=== PATIENT | female | born 1945 | race Caucasian/White ===

== ENCOUNTER 2025-02-18 15:08 | Emergency (ER) | payer MEDICARE, SELFPAY ==
--- NOTE | 2025-02-18 15:09 | W.ED.GENADLT ---
HPI - General Adult General: Chief complaint: Extremity Injury, Upper Stated complaint: left wrist pain s/p fall Time Seen by Provider: 02/18/25 15:09 Source: patient and EMS Mode of arrival: EMS Limitations: no limitations History of Present Illness: 79-year-old female who states that she had slipped and fell today at her home. She states she landed on her left wrist has left wrist pain also having some left hip pain as well. She is unsure if she hit her head she states she has had some slight lightheadedness as well denies any chest pain denies any vomiting Associated symptoms: Deny chest pain, dyspnea, headache(s), nausea, rash or vomiting Related Data Home Medications ?Medication ?Instructions ?Recorded ?Confirmed amlodipine 10 mg tablet 10 mg PO DAILY 02/18/25 02/18/25 fentanyl 25 mcg/hr transdermal 1 patch transdermal Q3D 02/18/25 02/18/25 patch gabapentin 100 mg capsule 100 mg PO Q8H 02/18/25 02/18/25 oxycodone-acetaminophen 5 mg-325 1 tab PO Q4H 02/18/25 02/18/25 mg tablet Allergies Allergy/AdvReac Type Severity Reaction Status Date / Time No Known Allergies Allergy Verified 02/18/25 15:15 Review of Systems Const: Denies: fever(s), chills, body aches or change in appetite ENMT: Denies: throat pain or dental pain Card: Denies: chest pain Resp: Denies: dyspnea GI: Denies: abdominal pain, nausea, vomiting or diarrhea Musc: Reports: extremity pain; Denies: neck pain or back pain Skin/Breast: Denies: rash Neuro: Denies: headache(s) Physical Exam Const: COMMON NORMALS: no acute distress, patient oriented x3 and healthy appearing HENMT: COMMON NORMALS: normocephalic and atraumatic HEAD & SCALP: normocephalic and atraumatic Eye: COMMON NORMALS: conjunctivae normal CONJUNCTIVA: Yes conjunctivae normal Neck/C-Spine: COMMON NORMALS: full ROM and supple Chest: COMMONS NORMALS: normal inspection of the chest and normal palpation of entire chest wall Resp: COMMON NORMALS: normal respiratory effort, No retractions, No use of accessory muscles and clear to auscultation bilaterally AUSCULTATION: clear to auscultation bilaterally Cardio: COMMON NORMALS: regular rate, regular rhythm and No murmurs present (Cardio) RATE: regular rate RHYTHM: regular rhythm Extremity: COMMON NORMALS: full ROM NARRATIVE EXTREMITY EXAM: Tenderness noted to left wrist and left hip some slight deformity to the left wrist distal pulses sensation intact Neuro: COMMON NORMALS: patient oriented x3, moves all extremities and no focal motor deficits Psych: COMMON NORMALS: mental status grossly normal, Normal thought process present and cooperative THOUGHT PROCESS: Normal thought process present Skin: COMMON NORMALS: no rashes or lesions noted and no wounds GENERAL SKIN EXAM: no rashes or lesions noted Course Vital Signs: Vital signs: Vital Signs Temperature 97.8 F 02/18/25 15:11 Pulse Rate 78 02/18/25 15:11 Respiratory Rate 18 02/18/25 15:11 Blood Pressure 142/70 02/18/25 15:15 Pulse Oximetry 92 02/18/25 15:15 Oxygen Delivery Me thod Room Air 02/18/25 15:11 MDM - General Adult Medical Decision Making Patient presents here with fracture to the left wrist from a fall. Blood work imaging otherwise is normal she is well-appearing here is placed in a splint she stable for discharge she is to follow-up with orthopedics return if worsening. Medical Records I reviewed the patient's medical records. Lab Data I reviewed the patient's lab results. 02/18/25 15:33 02/18/25 15:33 Radiology Impressions Chest X-Ray 02/18/25 15:17 IMPRESSION: 1. No acute cardiopulmonary process. 2. No acute fracture. 3. CT scan of the chest with contrast would be recommended if there is continuing clinical concern for thoracic injury. 4. Incidental/nonacute findings are listed in the report. Head CT 02/18/25 15:17 IMPRESSION: 1. No acute abnormality of the brain. 2. Moderate atrophy of the brain parenchyma. 3. Moderate chronic white matter microangiopathic change. 4. 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 5. Incidental/nonacute findings are listed in the report. Laboratory Results WBC 3.71 10^3/uL (3.29-11.43) 02/18/25 15:33 RBC 3.19 10^6/uL (3.85-5.65) L 02/18/25 15:33 Hgb 10.80 g/dL (11.27-16.99) L 02/18/25 15:33 Hct 31.6 % (36-47) L 02/18/25 15:33 MCV 99.1 fl (85-98) H 02/18/25 15:33 MCH 33.9 pg (27-33) H 02/18/25 15:33 MCHC 34.2 g/dL (30-55) 02/18/25 15: RDW 15.0 % (12.1-15.1) 02/18/25 15: Plt Count 104 10^3/cmm (157-399) L 02/18/25 15:33 MPV 11.3 fL (7.4-10.4) H 02/18/25 15:33 Neut % (Auto) 62.8 % 02/18/25 15:33 Lymph % (Auto) 12.9 % 02/18/25 15:33 [place] % (Auto) 11.9 % 02/18/25 15: Eos % (Auto) 7.3 % 02/18/25 15:33 Baso % (Auto) 0.8 % 02/18/25 15:33 Neut # (Auto) 2.33 10^3/uL (1.8-7.7) 02/18/25 15:33 Lymph # (Auto) 0.5 10^3/uL (0.8-4.8) L 02/18/25 15:33 [place] # (Auto) 0.4 10^3/uL (0.2-0.9) 02/18/25 15: Eos # (Auto) 0.3 10^3/uL (0.0-0.8) 02/18/25 15:33 Baso # (Auto) 0.0 10^3/uL (0.0-0.1) 02/18/25 15: Nucleated RBC % (auto) 0 % 02/18/25 15: Nucleated RBCs # 0.0 /100WBC 02/18/25 15:33 Sodium 137 mmol/L (136-145) 02/18/25 15:33 Potassium 3.6 mmol/L (3.5-5.1) 02/18/25 15:33 Chloride 107 mmol/L (98-107) 02/18/25 15:33 Carbon Dioxide 22 mmol/L (22-29) 02/18/25 15:33 Anion Gap 11.6 (5-19) 02/18/25 15:33 BUN 11 mg/dL (8-23) 02/18/25 15:33 Creatinine 0.9 mg/dL (0.5-0.9) 02/18/25 15:33 GFR Calculation Not Reportable 02/18/25 15:33 Glucose 110 mg/dL (65-115) 02/18/25 15:33 Calculated Osmolality 284 mOsm/kg (285-295) L 02/18/25 15:33 Calcium 9.8 mg/dL (8.5-10.5) 02/18/25 15:33 Total Bilirubin 0.6 mg/dL (0.15-1.2) 02/18/25 15:33 AST 30 U/L (0-32) 02/18/25 15:33 ALT 17 U/L (0-33) 02/18/25 15:33 Alkaline Phosphatase 75 U/L (35-105) 02/18/25 15:33 Total Protein 8.7 g/dL (6.6-8.7) 02/18/25 15:33 Albumin 3.3 g/dL (3.5-5.2) L 02/18/25 15:33 Globulin 5.4 g/dL (1.3-4.6) H 02/18/25 15:33 All radiology interpretation(s) finalized by discharge Discharge Plan Discharge Patient Disposition: Home Clinical Impression: Closed fracture of left wrist, Fall Condition: Stable Prescriptions: No Action oxycodone-acetaminophen 5-325 mg tablet 1 tab PO Q4H MDD 4 tabs amlodipine 10 mg tablet 10 mg PO DAILY gabapentin 100 mg capsule 100 mg PO Q8H fentanyl 25 mcg/hr patch 72 hour 1 patch transdermal Q3D Discharge Orders: Discharge ED (Routine); Ordered 02/18/25 Ordered By: Matheus Wen Referrals: Sole Sousa MD [Physician] - 4-7 days Discharge Diet: Advance as tolerated Discharge Activity: Resume usual activity Patient Instructions: Wrist Fracture in Adults (ED) Print Language: Gabonese Coding Level of Care Code ED [employer] Operator for Sincere Santos
[2025-02-18 15:11] VITALS: BP 134/68; PULSE 78; RESP 18; TEMP 36.6; O2SAT 97
[2025-02-18 15:15] VITALS: BP 142/70; O2SAT 92
--- NOTE | 2025-02-18 15:17 | CTR_ITS ---
PROCEDURE INFORMATION: Exam: CT Head Without Contrast Exam date and time: 02/18/2025 3:45 PM Age: 79 years old Clinical indication: Injury or trauma; Fall; Blunt trauma (contusions or hematomas) TECHNIQUE: Imaging protocol: Computed tomography of the head without contrast. Sagittal, oblique axial, and coronal reformatted images were also reviewed. Radiation optimization: All CT scans at this facility use at least one of these dose optimization techniques: automated exposure control; mA and/or kV adjustment per patient size (includes targeted exams where dose is matched to clinical indication); or iterative reconstruction. COMPARISON: No relevant prior studies available. 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 Brain: No acute intracranial hemorrhage. No acute infarct. No intra-axial or extra-axial masses. Ramon-white matter differentiation is preserved. No cerebral edema. No extra-axial fluid collections. No midline shift. Moderate atrophy of the brain parenchyma. Moderately decreased attenuation in the deep white matter, consistent with moderate chronic microangiopathic change. No evidence for Chiari 1 malformation. Cerebral ventricles: No hydrocephalus. Paranasal sinuses: Mild mucoperiosteal thickening in the bilateral ethmoid sinuses. Other visualized paranasal sinuses are clear. Mastoid air cells: Mastoid air cells are clear bilaterally. Orbital cavities: No acute abnormality in the visualized orbits. Nasal cavity: Mild left nasal septal deviation. Bones: Bones are diffusely osteopenic. Soft tissues: No acute abnormality of the extracranial soft tissues. Vasculature: Atherosclerotic changes in the visualized arteries. CT/CT head wo con* [id number] IMPRESSION: 1. No acute abnormality of the brain. 2. Moderate atrophy of the brain parenchyma. 3. Moderate chronic white matter microangiopathic change. 4. 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 5. Incidental/nonacute findings are listed in the report.
--- NOTE | 2025-02-18 15:17 | XRR_ITS ---
PROCEDURE INFORMATION: Exam: XR Left Wrist Exam date and time: 02/18/2025 3:32 PM Age: 79 years old Clinical indication: Injury or trauma; Fall; Blunt trauma (contusions or hematomas); Wrist; Left TECHNIQUE: Imaging protocol: Radiologic exam of the left wrist. Views: 3 or more views. COMPARISON: No relevant prior studies available. FINDINGS: Bones/joints: Comminuted, intra-articular fracture of the distal left radius with mild impaction and approximately 30 degrees of dorsal angulation of the distal fracture fragment. Mildly comminuted, nondisplaced fracture of the tip of the left ulnar styloid. Bones are moderately osteopenic. No dislocation. Mild degenerative changes at the left 1st CMC joint. Soft tissues: Moderate soft tissue swelling around the left wrist. No soft tissue emphysema. No radiopaque foreign body. XR/XR wrist LT min 3V* [id number] IMPRESSION: 1. Comminuted, intra-articular fracture of the distal left radius with mild impaction and approximately 30 degrees of dorsal angulation of the distal fracture fragment. 2. Mildly comminuted, nondisplaced fracture of the tip of the left ulnar styloid. 3. Mild degenerative changes at the left 1st CMC joint. 4. Moderate soft tissue swelling around the left wrist. 5. Incidental/nonacute findings are listed in the report.
--- NOTE | 2025-02-18 15:17 | XRR_ITS ---
PROCEDURE INFORMATION: Exam: XR Left Hip Exam date and time: 02/18/2025 3:32 PM Age: 79 years old Clinical indication: Injury or trauma; Fall; Blunt trauma (contusions or hematomas); Left; Prior surgery; Surgery date: 6+ months; Surgery type: Bilateral hip replacements TECHNIQUE: Imaging protocol: Radiologic exam of the left hip. Views: 2 or 3 views hip with pelvis when performed. COMPARISON: No relevant prior studies available. FINDINGS: Tubes, catheters and devices: A battery, possibly from a spinal cord stimulator projects over the lower right abdomen. Bones/joints: No acute fracture. No dislocation. Bones are moderately osteopenic. Patient has had previous right and left hip arthroplasties. Mild degenerative changes at the right and left sacroiliac joints. Multilevel degenerative changes of varying severity in the visualized spine. Soft tissues: No soft tissue swelling or soft tissue emphysema. No radiopaque foreign body. Intraperitoneal space: Surgical clips in the left pelvis. XR/XR hip LT 2-3V wo/w pel* [id number] IMPRESSION: 1. No acute fracture of the pelvis. CT scan or MRI would be recommended if clinical concern for fracture persists. 2. Incidental/nonacute findings are listed in the report.
--- NOTE | 2025-02-18 15:17 | XRR_ITS ---
PROCEDURE INFORMATION: Exam: XR Chest Exam date and time: 02/18/2025 3:32 PM Age: 79 years old Clinical indication: Injury or trauma; Fall; Blunt trauma (contusions or hematomas); Prior surgery; Surgery date: 6+ months; Surgery type: Breast TECHNIQUE: Imaging protocol: Radiologic exam of the chest. Views: 1 view. COMPARISON: No relevant prior studies available. FINDINGS: Tubes, catheters and devices: Spinal stimulator with the paddle at the T8 and T9 vertebral levels. Lungs: Lungs are clear bilaterally. Pleural spaces: No pleural effusion. No pneumothorax. Heart/Mediastinum: The cardiac silhouette and mediastinal contours are unremarkable. Vasculature: Vascular calcifications in the aorta. The aorta is tortuous. Bones/joints: Bones are diffusely osteopenic. Degenerative changes in the spine and shoulders. No acute fracture. XR/XR chest 1V portable [id number] IMPRESSION: 1. No acute cardiopulmonary process. 2. No acute fracture. 3. CT scan of the chest with contrast would be recommended if there is continuing clinical concern for thoracic injury. 4. Incidental/nonacute findings are listed in the report.
[2025-02-18 15:38] LABS: Basophils % 0.8 %; Eosinophils # 0.3 10^3/uL (0.0-0.8); Eosinophils % 7.3 %; Hematocrit 31.6 % (36-47); Lymphocytes # 0.5 10^3/uL (0.8-4.8); Lymphocytes % 12.9 %; Mean Corpuscular HGB Conc 34.2 g/dL (30-55); Mean Corpuscular Hemoglobin 33.9 pg (27-33); Mean Corpuscular Volume 99.1 fl (85-98); Mean Platelet Volume 11.3 fL (7.4-10.4); Monocytes # 0.4 10^3/uL (0.2-0.9); Monocytes % 11.9 %; Neutrophils # 2.33 10^3/uL (1.8-7.7); Neutrophils % 62.8 %; Nucleated Red Blood Cells % 0 %; Platelet Count 104 10^3/cmm (157-399); Red Blood Count 3.19 10^6/uL (3.85-5.65); White Blood Count 3.71 10^3/uL (3.29-11.43)
[2025-02-18 15:58] LABS: Alanine Aminotransferase 17 U/L (0-33); Albumin Level 3.3 g/dL (3.5-5.2); Alkaline Phosphatase 75 U/L (35-105); Anion Gap 11.6 (5-19); Aspartate Amino Transferase 30 U/L (0-32); Blood Urea Nitrogen 11 mg/dL (8-23); Calcium 9.8 mg/dL (8.5-10.5); Carbon Dioxide 22 mmol/L (22-29); Chloride 107 mmol/L (98-107); Globulin 5.4 g/dL (1.3-4.6); Glucose 110 mg/dL (65-115); Osmolality Calculated 284 mOsm/kg (285-295); Potassium 3.6 mmol/L (3.5-5.1); Sodium 137 mmol/L (136-145); Total Bilirubin 0.6 mg/dL (0.15-1.2); Total Protein 8.7 g/dL (6.6-8.7)
[2025-02-18 16:49] VITALS: BP 163/72; PULSE 82; RESP 16; O2SAT 93
--- NOTE | 2025-02-21 09:33 | DCPLANNER ---
Message sent to Ortho for follow up-Comminuted, intra-articular fracture of the distal left radius with mild impaction and approximately 30 degrees of dorsal angulation of the distal fracture fragment
== END 2025-02-18 16:50 | disposition home or self-care (01) ==
PROVIDERS: Emergency Provider Emergency Medicine
DX: S62.102A Fracture of unspecified carpal bone, left wrist, initial encounter for closed fracture (principal); W19.XXXA Unspecified fall, initial encounter
CPT/HCPCS: 29125; 70450; 71045; 73110; 73502; 80053; 85025; 99285

== ENCOUNTER → 2025-02-24 10:36 | Outpatient (BNVA) | payer MEDICARE, SELFPAY | PROVIDERS: PCP Family Medicine; Visit Provider Nurse Practitioner | DX: S52.531A Colles' fracture of right radius, initial encounter for closed fracture (principal); S52.614A Nondisplaced fracture of right ulna styloid process, initial encounter for closed fracture; W19.XXXA Unspecified fall, initial encounter; Y92.010 Kitchen of single-family (private) house as the place of occurrence of the external cause | CPT/HCPCS: 25600; 73110; 99204 ==